=== PATIENT | male | born 1940 | race Caucasian/White ===

== ENCOUNTER 2017-06-20 08:26 | Day surgery (SDC) | payer MEDICARE, OTHER ==
[~2017-06-20 08:26] MED LIST: RINGER'S SOLUTION,LACTATED 1,000 ML IV PRN; ceFAZolin SODIUM 1 GM VIAL IV PRN
[2017-06-20] MEDS ORDERED: RINGER'S SOLUTION,LACTATED 1,000 ML IV ONE ×2 (08:52→08:55)
[2017-06-20] MEDS ORDERED: BUPIVACAINE HCL 50 ML VIAL IJ ONE (09:21)
--- NOTE | 2017-06-20 09:40 | OR ---
Operative Report - Dictated Report Narrative: Date: 06/20/2017 Physician: Jerardo Perez M.D. Drawer In Dobby Loom: Chato Pack PA-C Preoperative diagnosis: Left Carpal tunnel syndrome Postoperative diagnosis: Left Carpal tunnel syndrome Procedure: Open left carpal tunnel release Anesthesia: MAC plus local Complications: None Estimated blood loss: Minimal Tourniquet time: 11 Minutes at 250 mmHg Specimens: None Retained implants: None Drains: None Indications: Darvin Is a 76 year-old male who has been followed in my clinic with complaints of carpal tunnel syndrome. Physical exam as well as diagnostic testing showed compression of the median nerve compatible with carpal tunnel syndrome. Conservative measures have failed including but not limited to activity modification, medications, and/or bracing. The risks, benefits, and alternatives were discussed in clinic. The risks being bleeding, infection, nerve, tendon, blood vessel injury, persistent pain, wound complications, weakness, palm pain, need for additional procedures, and persistent symptoms. Consent was obtained in the clinic. Procedure: After marking the correct extremity in the preoperative holding area, a timeout was performed in the operating room. IV antibiotics consisting of 2 g of Ancef were administered prior to the procedure. A well-padded tourniquet was applied to the operative upper arm. The arm was exsanguinated and the tourniquet was inflated to 250 mmHg. 0.5% Marcaine without epinephrine was infused into the projected incision site. Using Loupe magnification, a longitudinal incision was made in line with the longitudinal hypothenar crease, or approximately in line with the ring finger, from just distal to the wrist flexion crease and extending approximately 2.5 cm distally. Blunt dissection and hemostasis with bipolar cautery was carried out throught the subcutaneous tissue and palmar fascia down to the level of the transverse carpal ligament. Ragnel retractors were used to retract the surrounding soft tissue and provide good visualization of the transverse carpal ligament. The transverse carpal ligament was then sharply incised longitudinally with a 15-blade scalpel. A [place] elevator was then slid underneath the transverse carpal ligament distally, protecting the median nerve, and the remaining distal portion of the transverse carpal ligament was sharply divided. This was then repeated proximally to divide the remaining proximal portion. Tenotomy scissors were used to divide any remaining transverse carpal ligament and palmar fascia distally being careful to avoid the superficial palmar arch. The distal forearm fascia was released ensuring that the median nerve was completely decompressed utilizing tenotomy scissors. The median nerve was then carefully inspected. Once it was felt that all the tissues overlying the median nerve were completely released, the wounds were thoroughly irrigated with saline. Tourniquet was deflated and hemostasis was obtained with pressure as well as bipolar cautery. Once bleeding had resolved and there was no excessive bleeding, the wounds were closed with interrupted 4-0 nylon. Xeroform, 4 x 4's, soft roll, and a well- padded dorsal short arm wrist splint was applied. The patient was awoken and transferred to the post-anesthesia care unit in stable condition. All sponge, needle, blade, and instrument counts were correct prior to closing the wounds. Additional 0.5% Marcaine without epinephrine was infused into the skin edges for pain control.
[2017-06-20 10:46] VITALS: BP 129/73
== END 2017-06-20 08:27 | disposition home or self-care (01) ==
LOC: AMB 08:26
PROVIDERS: ATTEND Orthopaedic Surgery
PROC: 01N50ZZ Release Median Nerve, Open Approach (ICD-10-PCS; principal; 2017-06-20 09:45)
DX: G56.02 Carpal tunnel syndrome, left upper limb (principal); I10 Essential (primary) hypertension; N40.0 Benign prostatic hyperplasia without lower urinary tract symptoms; E66.9 Obesity, unspecified; Z68.32 Body mass index [BMI] 32.0-32.9, adult